=== PATIENT | female | born 1950 | race Caucasian/White ===

== ENCOUNTER 2017-11-20 19:49 | Inpatient (IN) | payer MEDICARE, BC ==
[~2017-11-20] VITALS: Ht 167.6 cm; Wt 60.8 kg
--- NOTE | 2017-11-20 19:55 | NUR ---
TO BED 15 A 67 YO FEMALE PATIENT BBFAMILY PER PT, SHE IS SENT FROM URGENT CARE FOR NAUSEA/VOMTIING. PATIENT ALSO C/O DULL EPIGASTRIC PAIN. PATIENT IS AAOX4, NAD NOTED. BREATHING EVEN AND UNLABORED. SKIN WARM AND DRY. AMBULATORY. GOWNED. COMFORT MEASURES REDNERED.
[2017-11-20] MEDS ORDERED: ONDANSETRON HCL/PF 4 MG/2 ML VIAL ONE (20:23)
[2017-11-20] MEDS ORDERED: FAMOTIDINE/PF INJ 20 MG/2 ML VIAL IV ONE ×2 (20:23→20:30)
--- NOTE | 2017-11-20 20:26 | NUR ---
PATIENT TO CT.
[2017-11-20] MEDS ORDERED: IV NS 0.9% 1,000 ML BAG IV ONE (20:30)
[2017-11-20] MEDS ORDERED: ONDANSETRON HCL/PF 4 MG/2 ML VIAL IVP ONE (20:30)
[2017-11-20 20:45] LABS: BASOPHILS % (AUTO) 0.3 % (0.0-2.0); EOSINOPHILS % (AUTO) 0.1 % (0.0-6.0); HEMATOCRIT 34 % (33-45); HEMOGLOBIN 11.8 g/dL (11.5-14.8); LYMPHOCYTES # (AUTO) 0.6 /CMM (0.8-4.8); LYMPHOCYTES % (AUTO) 4.7 % (20.0-44.0); MEAN CORPUSCULAR HGB CONC 35 g/dl (31.0-36.0); MEAN CORPUSCULAR VOLUME 93 fL (82-100); MONOCYTES # (AUTO) 0.4 /CMM (0.1-1.30); MONOCYTES % (AUTO) 3.5 % (2.0-12.0); NEUTROPHILS # (AUTO) 10.9 /CMM (1.8-8.9); NEUTROPHILS % (AUTO) 91.4 % (43.0-81.0); PLATELET COUNT (AUTO) 194 /CMM (150-450); RDW COEFFICIENT OF VARIATION 12.5 (11.5-15.0); RED BLOOD CELL COUNT(AUTO) 3.66 MIL/uL (4.0-5.2); WHITE BLOOD COUNT (AUTO) 11.9 K/uL (4.3-11.0)
--- NOTE | 2017-11-20 20:52 | NUR ---
MEDICATED PATIENT ORDERED BY DR ELIZABETH.
--- NOTE | 2017-11-20 20:54 | NUR ---
CALLED COLTEN TO CALL IN [employer] FOR US GALLBLADDER
--- NOTE | 2017-11-20 20:55 | NUR ---
Note guidopatricio in EDM - 11/20/17 at 2144 by KODI TO BED 15 A 67 YO FEMALE PATIENT BBFAMILY PER PT, SHE IS SENT FROM URGENT CARE FOR NAUSEA/VOMTIING. PATIENT ALSO C/O DULL EPIGASTRIC PAIN. PATIENT IS AAOX4, NAD NOTED. BREATHING EVEN AND UNLABORED. SKIN WARM AND DRY. AMBULATORY. GOWNED. COMFORT MEASURES REDNERED.
[2017-11-20 20:58] LABS: CALCIUM, SERUM 8.9 mg/dL (8.5-10.1); CARBON DIOXIDE 27 mmol/L (21-32); CHLORIDE 100 mmol/L (98-107); CREATININE 0.8 mg/dL (0.6-1.3); POTASSIUM 3.4 mmol/L (3.5-5.1); SODIUM SERUM 135 mmol/L (136-145); UREA NITROGEN, BLOOD 14 mg/dL (7-18)
[2017-11-20] MEDS ORDERED: CEFTRIAXONE 1 G in IV D5W 50 ML IV ONE (21:00)
[2017-11-20] MEDS ORDERED: CEFTRIAXONE 1GM BAG (ER ONLY) 50 ML IV ONE (21:02)
[2017-11-20 21:03] LABS: ALANINE AMINOTRANSFERASE 24 U/L (12-78); ALBUMIN 3.6 g/dL (3.4-5.0); ALKALINE PHOSPHATASE 59 U/L (46-116); ASPARTATE AMINOTRANSFERASE 19 U/L (15-37); BILIRUBIN,DIRECT 0.2 mg/dL (0.0-0.2); BILIRUBIN,TOTAL 0.8 mg/dL (0.2-1.0); LIPASE 134 U/L (73-393); TOTAL PROTEIN, SERUM 7.8 g/dL (6.4-8.2)
[2017-11-20 21:05] LABS: TROPONIN I < 0.017 ng/mL (0.00-0.056)
[2017-11-20 21:08] LABS: GLUCOSE 127 mg/dL (74-106)
--- NOTE | 2017-11-20 21:20 | NUR ---
[facility] PAGED, TRANSPLANT SURGEON
--- NOTE | 2017-11-20 21:39 | NUR ---
CALLED NURSING SUP. FOR MS BED
--- NOTE | 2017-11-20 21:47 | NUR ---
MS 205-2
[2017-11-20] MEDS ORDERED: MORPHINE SULFATE INJ 4 MG/ML DISP.SYRIN ONE (21:53)
[2017-11-20] MEDS ORDERED: MORPHINE SULFATE INJ 2 MG/ML DISP.SYRIN IV ONE (22:00)
--- NOTE | 2017-11-20 22:19 | NUR ---
REPORT GIVEN TO GEGE AIKEN FOR GEGE AVILES.
--- NOTE | 2017-11-20 22:27 | NUR ---
TRANSFERRED PATIENT TO [facility] 205-2 VIA WHEELCHAIR. NO INCIDENT NOTED. AT BEDSIDE.
[2017-11-20 22:28] VITALS: BP 149/80
--- NOTE | 2017-11-20 22:28 | NUR ---
MS RN ADMITTING NOTES: ADMITTED A 67 YO FEMALE PATIENT WHO WAS SEEN IN THE ER DUE TO NAUSEA AND VOMITING (VOMITED TOTAL OF 5X SINCE YESTERDAY), AND RUQ ABDOMINAL PAIN. PATIENT WAS BROUGHT TO MS FLOOR VIA WHEELCHAIR, AOX4, ON ROOM AIR, BREATHING EVEN AND UNLABORED. APPEARS CALM AND IN NO DISTRESS BUT DOES STATE THAT SHE HAS 8/10 PAIN OVER RUQ OF ABDOMEN, NON RADIATING, DULL AND PRESSING IN QUALITY. NO REBOUND TENDERNESS NOTED, ABDOMEN IS SOFT, NON DISTENDED, WITH ACTIVE BOWEL SOUNDS. PATIENT DENIES NAUSEA NOW. LAST VOMITING WAS ABOUT 3 HRS AGO PER PATIENT. PIV OVER RAC G 18 INTACT AND PATENT TO FLUSH. ADMITTING CARE DONE. PROVIDED FOR COMFORT AND SAFETY. BED IN LOWEST AND LOCKED POSITION, SIDERAILS UP X 2, CALL LIGHT WITHIN REACH. WILL CONT TO MONITOR.
--- NOTE | 2017-11-20 22:42 | NUR ---
DR EGAN AT BEDSIDE TO ASSESS PATIENT
[2017-11-20 23:12] LABS: APPEARANCE,URINE CLEAR (CLEAR); BILIRUBIN,URINE NEGATIVE (NEGATIVE); BLOOD, URINE NEGATIVE Ery/uL (NEGATIVE); COLOR,URINE YELLOW (YELLOW); KETONES,URINE 2+ (NEGATIVE); LEUKOCYTE ESTERASE ,URINE NEGATIVE (NEGATIVE); NITRITE, URINE NEGATIVE (NEGATIVE); PROTEIN,URINE NEGATIVE (NEGATIVE); UGLUCOSE NEGATIVE (NEGATIVE); UROBILINOGEN,URINE 0.2 EU/dL (0.2)
[2017-11-20 23:19] LABS: BACTERIA,URINE None seen /HPF (None Seen); RBC,URINE NONE SEEN /HPF (0-2); SQUAMOUS EPITHELIAL CELL,UR Few /HPF (None Seen); WBC,URINE 0-2 /HPF (0-3)
[2017-11-20] MEDS ORDERED: HYDROCODONE/APAP 5/325MG 1 EACH TABLET PO PRN (23:30)
[2017-11-20] MEDS ORDERED: ZOLPIDEM TARTRATE 5 MG TABLET PO PRN (23:30)
[2017-11-20] MEDS ORDERED: ACETAMINOPHEN 325 MG TABLET PO PRN (23:30)
[2017-11-20] MEDS ORDERED: Z GUARD REMEDY 2 OZ OINT TP PRN (23:30)
[2017-11-20] MEDS: IV D5/0.45 NACL 1,000 ML IV PRN (23:54)
[2017-11-21] VITALS (8 sets, daily range): BP systolic 131–175; BP diastolic 72–95
[2017-11-21] MEDS ORDERED: POTASSIUM CHLORIDE 20 MEQ TAB.PRT.SR PO ONE
--- NOTE | 2017-11-21 | NUR ---
RN NOTES: CALLED DR EGAN RE NPO ORDER, PATIENT HAS TEMP OF 99.5, PER DR EGAN, OK TO GIVE PO MEDS FOR NOW, THEN NPO AFTERWARDS. ALSO, INFORMED DR EGAN SERUM K: 3.4, PER , GIVE KCL 40 MEQS PO NOW. NOTED AND CARRIED OUT.
[2017-11-21] MEDS ORDERED: METRONIDAZOLE 500MG/ NS 100ML 100 ML IV ONE (00:11)
[2017-11-21] MEDS ORDERED: LEVOFLOXACIN 500 MG /D5W 100ML 100 ML IV ONE (00:11)
[2017-11-21] MEDS: METRONIDAZOLE 500MG/ NS 100ML 500 MG in PREMIX 1 EA IV SCH ×5 (00:12→18:39)
--- NOTE | 2017-11-21 01:50 | NUR ---
RN NOTES: PATIENT HAD ONE EPISODE OF VOMITING, NOTED 80 ML OF PALE GREEN LIQUID/ WATER VOMITUS. WILL ADMINISTER ZOFRAN IV.
[2017-11-21] MEDS: LEVOFLOXACIN 500 MG /D5W 100ML 500 MG in PREMIX 1 EA IV SCH ×2 (01:58→23:33)
[2017-11-21] MEDS: ONDANSETRON HCL/PF 4 MG/2 ML VIAL IVP PRN ×2 (01:59→10:55)
[2017-11-21] MEDS: MORPHINE SULFATE INJ 4 MG/ML DISP.SYRIN IV PRN ×3 (02:00→12:00)
--- NOTE | 2017-11-21 05:25 | NUR ---
RN NOTES: PATIENT IS NOT YET DUE FOR FLAGYL IV, FIRST DOSE GIVEN AT 0012 AM, SCHEDULE IS Q8 HRS, NEXT DOSE TO BE GIVEN AT 0800.
--- NOTE | 2017-11-21 05:29 | NUR ---
RN NOTES: CALLED PHARMACIST APRON TRIMMER, CRISS, REGARDING PATIENT'S FLAGYL IV DOSE SCHEDULED AT 0500 AM, TOLD HIM IT WAS MARKED NON ADMIN BECAUSE LAST DOSE WAS 0012 AM, AND IT IS SUPPOSEDLY Q 8 HRS. PER PHARMACIST, HE WILL PUT IN A ONE TIME DOSE OF FLAGYL IV AT 0700 AM SO THAT THE SET Q8HRS SCHEDULE CAN BE FOLLOWED.
--- NOTE | 2017-11-21 06:45 | NUR ---
MS RN CLOSING NOTES: PATIENT IN BED, AOX4, ON ROOM AIR, BREATHING EVEN AND UNLABORED. APPEARS CALM AND IN NO DISTRESS. MAINTAINED ON NPO AFTER MIDNIGHT. PATIENT STILL COMPLAINING OF MILD RUQ PAIN, STILL WITH SLIGHT NAUSEA. PIV OVER RRAC G 18 INTACT AND INFUSING WELL WITH D51/2 NS RUNNING AT 75 ML/HR. DUE MEDS GIVEN. PROVIDED FOR COMFORT AND SAFETY. BED IN LOWEST AND LOCKED POSITION, SIDERAILS UP X 3, CALL LIGHT WITHIN REACH. WILL ENDORSE TO AM RN FOR STEFAN.
[2017-11-21] MEDS ORDERED: METRONIDAZOLE 500MG/ NS 100ML 500 MG in PREMIX 1 EA IV SCH (07:00)
--- NOTE | 2017-11-21 07:30 | NUR ---
MS/RN Patient received Patient received form maintenance supervisor 2nd shift. All needs attended, safety measures in place. Will continue to monitor and ensure safety.
--- NOTE | 2017-11-21 07:50 | NUR ---
MS/RN Pain Complaining of right upper quadrant abdominal pain. Morphine 1mg administered, will monitor effectiveness.
--- NOTE | 2017-11-21 07:53 | NUR ---
MS/RN Pain Complaining of abdominal pain 03/10. Morphine 1mg IVP administered, will monitor effectiveness.
--- NOTE | 2017-11-21 09:22 | NUR ---
MS/RN contacted Dr Palacios contacted via office, instructed by environmental conservation officer Becky to leave text message. message left at [phone].
--- NOTE | 2017-11-21 09:45 | NUR ---
MS/RN MD call back Received call back from Dr Palacios, aware of consult and will be in to see at sometime today.
[2017-11-21 09:53] LABS: ALBUMIN 3.1 g/dL (3.4-5.0); CALCIUM, SERUM 8.5 mg/dL (8.5-10.1); CREATININE 0.7 mg/dL (0.6-1.3); MAGNESIUM 1.6 mg/dL (1.8-2.4); PHOSPHORUS 2.5 mg/dL (2.5-4.9); POTASSIUM 3.9 mmol/L (3.5-5.1); TOTAL PROTEIN, SERUM 7.1 g/dL (6.4-8.2)
[2017-11-21 10:01] LABS: BASOPHILS % (AUTO) 0.1 % (0.0-2.0); EOSINOPHILS % (AUTO) 0.1 % (0.0-6.0); HEMATOCRIT 34 % (33-45); HEMOGLOBIN 11.7 g/dL (11.5-14.8); LYMPHOCYTES # (AUTO) 0.8 /CMM (0.8-4.8); LYMPHOCYTES % (AUTO) 6.9 % (20.0-44.0); MEAN CORPUSCULAR HGB CONC 35 g/dl (31.0-36.0); MEAN CORPUSCULAR VOLUME 92 fL (82-100); MONOCYTES # (AUTO) 0.8 /CMM (0.1-1.30); MONOCYTES % (AUTO) 6.6 % (2.0-12.0); NEUTROPHILS # (AUTO) 10.2 /CMM (1.8-8.9); NEUTROPHILS % (AUTO) 86.3 % (43.0-81.0); PLATELET COUNT (AUTO) 185 /CMM (150-450); RDW COEFFICIENT OF VARIATION 12.3 (11.5-15.0); RED BLOOD CELL COUNT(AUTO) 3.65 MIL/uL (4.0-5.2); WHITE BLOOD COUNT (AUTO) 11.8 K/uL (4.3-11.0)
--- NOTE | 2017-11-21 12:10 | NUR ---
MS/RN S/B Dr Mayberry Seen by MD - awaiting surgical input. Time allowed for all questions and concerns to be addressed.
[2017-11-21] MEDS ORDERED: BUPIVACAINE 0.25% 75 MG/30 ML VIAL ONE (14:28)
[2017-11-21] MEDS ORDERED: ANESTHESIA TRAY IN PYXIS 1 EA TRAY MC ONE (14:28)
[2017-11-21] MEDS ORDERED: ROCURONIUM BROMIDE 50 MG/5 ML ONE (14:53)
[2017-11-21] MEDS ORDERED: MIDAZOLAM HCL 2 MG/2ML VIAL ONE (14:53)
--- NOTE | 2017-11-21 15:05 | NUR ---
MS/RN OR Patient taken to OR.
[2017-11-21] MEDS ORDERED: SEVOFLURANE 250 ML BOTTLE IH ONE (15:49)
--- NOTE | 2017-11-21 17:49 | NUR ---
MS/RN Ivy Unable to administer 5p flagyl as patient still in OR.
[2017-11-21] MEDS ORDERED: FENTANYL PF 100MCG/2ML AMPUL IV PRN (18:30)
[2017-11-21] MEDS ORDERED: HYDROCODONE/APAP 5/325MG 1 EACH TABLET PO PRN (18:30)
[2017-11-21] MEDS ORDERED: TYLENOL 650 MG TABLET PO PRN (18:30)
[2017-11-21] MEDS ORDERED: SENOKOT 8.6 MG TABLET PO PRN (18:30)
[2017-11-21] MEDS: IV D5/0.45 NACL 1,000 ML IV PRN (18:39)
--- NOTE | 2017-11-21 18:45 | NUR ---
MS/RN Dr Palacios Per Dr Palacios - patient may be discharged to home tomorrow and follow up in office in 7-10 days. Will need a prescription for keflex 500mg TID for five days. Whilst still in the hospital, continue with both levaquin and flagyl IV.
[2017-11-21 19:11] LABS: INR 1.1 (0.87-1.13)
--- NOTE | 2017-11-21 19:41 | NUR ---
MS/RN Back from OR Patient back from lap luigi at 1820, vital signs recorded as per hospital protocol. Abdomen noted with three lap sites open to air, one pinch site, also open to air. One small dressing on top of abdomen where larger incision was made in order for the gall bladder to be removed. Denies any pain at this time. at bedside and updated as to plan of care, will endorse to shift nurse manager.
--- NOTE | 2017-11-21 19:45 | NUR ---
MS RN OPENING NOTES: PATIENT IN BED, AOX4, ON ROOM AIR, BREATHING EVEN AND UNLABORED, BREATH SOUNDS CLEAR TO AUSCULTATION. PATIENT STATES THAT AFTER LAP CHOLECYSTECTOMY, HER RUQ PAIN HAS BEEN SIGNIFICANTLY RELIEVED, BUT STILL STATES THAT SHE HAS 5/10 PAIN GENERALLY OVER HER ABDOMEN. NOTED 5 SMALL INCISIONS OVER ANTERIOR ABDOMEN. INCISION OVER UPPER MID ABDOMEN WITH CLEAN AND INTACT DRESSING. INSTRUCTED PATIENT ON INCENTIVE SPIROMETRY, AND TO USE PILLOW OVER ABDOMEN WHENEVER COUGHING/ PIV OVER RAC G 18 INTACT AND INFUSING WELL WITH D5 1/2 NS RUNNING AT 75 ML/HR. PROVIDE FOR COMFORT AND SAFETY. BED IN LOWEST AND LOCKED POSITION, SIDERAILS UP X 3, CALL LIGHT WITHIN REACH. WILL CONT TO MONITOR.
[2017-11-21] MEDS ORDERED: ESTR2TAB PO (23:58)
[2017-11-22] MEDS ORDERED: ANCEF 1 G in IV D5W 50 ML IV SCH ×2
[2017-11-22] MEDS: METRONIDAZOLE 500MG/ NS 100ML 500 MG in PREMIX 1 EA IV SCH ×2 (01:13→08:19)
--- NOTE | 2017-11-22 02:45 | NUR ---
RN NOTES: PATIENT COMPLAINED OF 5/10 PAIN OVER ANTERIOR ABDOMEN, STATES THAT IT IS FROM THE INCISIONS. NOTED INCISION SITES CLEAN AND DRY, NO BLEEDING OR DISCHARGE NOTED. ADMINISTERED TYLENOL PO PER REQUEST. WILL CONT TO MONITOR.
--- NOTE | 2017-11-22 07:22 | NUR ---
MS RN CLOSING NOTES: PATIENT IN BED, AOX4, ON ROOM AIR, BREATHING EVEN AND UNLABORED. APPEARS CALM AND IN NO DISTRESS. WAS ABLE TO AMBULATE AROUND THE HALLWAY WITHOUT PAIN. ONLY STATES SHE HAS MILD PAIN OVER ABDOMINAL INCISION SITES. PIV OVER RAC G 18 INTACT AND PATENT TO FLUSH. DUE MEDS GIVEN. PROVIDED FOR COMFORT AND SAFETY. BED IN LOWEST AND LOCKED POSITION, SIDERAILS UP X 3, CALL LIGHT WITHIN REACH. WILL ENDORSE TO AM RN FOR STEFAN.
--- NOTE | 2017-11-22 07:30 | NUR ---
MS/RN Patient received Patient received from night. Lap sites clean and dry, no further oozing noted. Safety measures in place, will continue to monitor and ensure safety.
[2017-11-22 08:00] VITALS: BP 131/81
--- NOTE | 2017-11-22 09:00 | NUR ---
MS/RN Medications Morning IVAB administered as ordered, no reaction noted.
[2017-11-22] MEDS ORDERED: METR500T PO (11:12)
[2017-11-22] MEDS ORDERED: CEPH-570 PO (11:12)
--- NOTE | 2017-11-22 12:37 | NUR ---
MS/RN S/B Emma Riggs Seen by HEAD CHARGER - PATIENT MAY BE DISCHARGED HOME TODAY WITH PRESCRIPTION TO CONTINUE ORAL ANTIBIOTICS FOR THE NEXT FIVE DAYS.
--- NOTE | 2017-11-22 12:40 | NUR ---
MS/benefits specialist instructions Exit care prepared, education provided to patient regarding incision care. Possible side effects to be aware of following surgery provided to patient, including fever, increase in swelling around incision sites and increase in pain. Instructed on the importance of filling prescription as soon as possible and completing entire course of medications. Heplock and name bands removed
--- NOTE | 2017-11-22 13:00 | NUR ---
MS/international marketing executive Patient discharged to home with at 1p. All personal belongings with patient and accounted for on personal belongings list.
== END 2017-11-22 15:42 | disposition home or self-care (01) | DRG 418 ==
LOC: ER 19:53 → MEDSG2 22:11
PROVIDERS: ADMIT Internal Medicine; ATTEND Internal Medicine
PROC: 0FT44ZZ Resection of Gallbladder, Percutaneous Endoscopic Approach (ICD-10-PCS; principal; 2017-11-21 14:30)
DX: K80.01 Calculus of gallbladder with acute cholecystitis with obstruction (principal); E87.1 Hypo-osmolality and hyponatremia; E44.1 Mild protein-calorie malnutrition; E87.6 Hypokalemia; D72.829 Elevated white blood cell count, unspecified; R73.9 Hyperglycemia, unspecified; E88.09 Other disorders of plasma-protein metabolism, not elsewhere classified
CPT/HCPCS: 36415; 71045-TC; 76705-TC; 80048-TC; 80053-TC; 80061-TC; 80076-TC; 81000-TC; 83690-TC; 83735-TC; 84100-TC; 84484-TC; 85025-TC; 85610-TC; 87081-TC; 88304-TC; 88305-TC; 93307-TC; A4216; A4606; A6402; J0690; J0696; J1100; J1885; J1956; J2250; J2270; J2405; J2704; J3490; J7030; J7060; Z7610

== ENCOUNTER 2023-01-05 17:31 | Emergency (ER) | payer MEDICARE, BC ==
[~2023-01-05] VITALS: Ht 167.6 cm; Wt 61.2 kg
[~2023-01-05 17:31] MED LIST: CEPH-570 PO; ESTR2TAB PO; METR500T PO
[2023-01-05 18:04] VITALS: BP 117/79
--- NOTE | 2023-01-05 19:10 | NUR ---
CALLED TO ROOM, NO REPSONSE.
--- NOTE | 2023-01-05 19:30 | NUR ---
CALLED TO ROOM, NO RESPONSE.
== END 2023-01-05 21:38 | disposition left against medical advice (07) ==
LOC: ER 17:46
DX: R10.9 Unspecified abdominal pain (principal); R11.2 Nausea with vomiting, unspecified; Z53.21 Procedure and treatment not carried out due to patient leaving prior to being seen by health care provider